=== PATIENT | female | born 1935 | race Caucasian/White ===

== ENCOUNTER → 2017-02-13 | Outpatient (CLI) | payer OTHER | LOC: EXRD 09:08 | DX: R07.9 Chest pain, unspecified (principal) | CPT/HCPCS: 71020 ==

== ENCOUNTER → 2017-02-28 | Outpatient (CLI) | payer OTHER | LOC: MAMO 09:40 | DX: Z12.31 Encounter for screening mammogram for malignant neoplasm of breast (principal); Z90.710 Acquired absence of both cervix and uterus | CPT/HCPCS: G0202 ==

== ENCOUNTER → 2021-10-10 | Outpatient (CLI) | payer MEDICARE ==
[~2021-10-10] MED LIST: AREDS PO; ATENOLOL25 MG PO; CELEBREX 100MG100 MG PO; CELEBREX200 MG PO; CYANOCOBAL1000 MCG/1 INJ; DAILY VALUE1 EACH PO; ECOTRIN81 MG PO; ELIQUIS 2.5 MG2.5 MG PO; FISH OIL 500 M1 EAC2 PO; HYDROCHLOROTH12.5 M1 PO; LORTAB 7.5-3251 EACH PO; MIRALAX17 GM PO; MOBIC15 MG PO; NEURONTIN300 MG PO; NORCO 5-325 TA1 EACH PO; PRAVACHOL40 MG PO; PRINIVIL20 MG PO; PROTONIX 40 MG40 M1 PO; TYLENOL 500 MG500 MG PO; ULTRAM50 MG PO; VITAMIN D31000 UNI1 PO; WAL-FEX ALLERGY60 MG PO; ZIRGAN5 GM OP; ZOVIRAX 800 MG800 MG PO; ZYLOPRIM 100 M100 MG PO; cranberry PO
== END ==
LOC: EXRD 11:15
DX: M79.602 Pain in left arm (principal); R06.02 Shortness of breath; M50.122 Cervical disc disorder at C5-C6 level with radiculopathy; Z91.81 History of falling
CPT/HCPCS: 71046; 72040; 73030; 73060

== ENCOUNTER → 2021-10-19 | Outpatient (CLI) | payer MEDICARE ==
[~2021-10-19] VITALS: Ht 160 cm; Wt 83.0 kg
== END ==
LOC: EROP 12:02
DX: U07.1 COVID-19 (principal); Z23 Encounter for immunization; I12.9 Hypertensive chronic kidney disease with stage 1 through stage 4 chronic kidney disease, or unspecified chronic kidney disease; N18.9 Chronic kidney disease, unspecified
CPT/HCPCS: M0247; Q0247

== ENCOUNTER → 2021-12-05 | Outpatient (CLI) | payer MEDICARE | LOC: EXRD 09:17 | DX: M25.511 Pain in right shoulder (principal); M25.512 Pain in left shoulder; M47.22 Other spondylosis with radiculopathy, cervical region; M51.36 Other intervertebral disc degeneration, lumbar region; M43.13 Spondylolisthesis, cervicothoracic region; M47.816 Spondylosis without myelopathy or radiculopathy, lumbar region; M48.07 Spinal stenosis, lumbosacral region; M46.06 Spinal enthesopathy, lumbar region; M48.061 Spinal stenosis, lumbar region without neurogenic claudication; M41.9 Scoliosis, unspecified; R93.6 Abnormal findings on diagnostic imaging of limbs | CPT/HCPCS: 72020; 72100; 73030 ==

== ENCOUNTER → 2021-12-22 | Outpatient (CLI) | payer MEDICARE | LOC: EMI 09:45 | DX: M54.12 Radiculopathy, cervical region (principal); M48.02 Spinal stenosis, cervical region | CPT/HCPCS: 72141 ==